=== PATIENT | male | born 1985 | race Caucasian/White ===

== ENCOUNTER → 2017-07-23 | Outpatient (CLI) | payer OTHER ==
[2017-07-23 13:20] LABS: ALBUMIN 4.1 gm/dl (3.4-5.0); ALT/SGPT 85 U/L (12-78); AST/SGOT 37 U/L (15-37); BLOOD UREA NITROGEN 15 mg/dl (7-18); CALCIUM 8.6 mg/dl (8.5-10.1); CARBON DIOXIDE 29 mmol/L (21-32); CREATININE 0.83 mg/dl (0.60-1.40); GLUCOSE 82 mg/dl (70-99); POTASSIUM 3.5 mmol/L (3.5-5.1); SODIUM 140 mmol/L (136-145)
[2017-07-23 13:23] LABS: ALKALINE PHOSPHATASE 47 U/L (45-117)
== END | disposition home or self-care (01) ==
LOC: C.LAB 12:04
PROVIDERS: ATTEND Family Medicine
DX: Z00.00 Encounter for general adult medical examination without abnormal findings (principal); R25.1 Tremor, unspecified; K62.5 Hemorrhage of anus and rectum; Z92.29 Personal history of other drug therapy